=== PATIENT | male | born 1960 | race Caucasian/White ===

== ENCOUNTER → 2016-07-21 | Outpatient (CLI) | payer MEDICAID ==
[~2016-07-21] MED LIST: NO MEDICATIONS; OMEPRAZOLE40 M1 PO
[2016-07-21 10:10] LABS: HEMATOCRIT 44.8 % (38.0-50.0); HEMOGLOBIN 15.4 gm/dL (13.0-16.0); MEAN CELL VOLUME 101.6 FL (83-96); MEAN CORPUSCULAR HEMOGLOBIN 34.9 PG (28-34); MEAN CORPUSCULAR HGB CONC 34.4 g/dL (30-36); MEAN PLATELET VOLUME 8.9 FL (6.5-11.5); RED BLOOD COUNT 4.42 X10e (3.90-5.60); RED CELL DISTRIBUTION WIDTH 13.8 % (11.0-15.5); WHITE BLOOD COUNT 9.1 X10e3 (4.0-10.5)
[2016-07-21 11:13] LABS: ALBUMIN SERUM 4.1 g/dL (3.5-5.0); BILIRUBIN,TOTAL 0.3 mg/dL (0.2-2.0); BUN/CREATININE RATIO 16.66; CALCIUM SERUM 9.1 mg/dL (8.4-10.2); CREATININE SERUM 0.9 mg/dL (0.6-1.4); GLOM FILT RATE Estimated 95.8 mL/min (>60); POTASSIUM 3.5 mmol/L (3.5-5.1); PROTEIN TOTAL SERUM 7.5 g/dL (6.0-8.3)
== END | disposition home or self-care (01) ==
LOC: CLAB 09:46
PROVIDERS: Dermatology
DX: L70.0 Acne vulgaris (principal)
CPT/HCPCS: 36415; 80053; 80061; 85027

== ENCOUNTER 2016-08-09 01:44 | Emergency (ER) | payer MEDICAID ==
--- NOTE | ~2016-08-09 | EKG ---
PATIENT: SIMÓN RANDLE UNIT #: [id number] Ventricular Rate: 62 BPM Atrial Rate: 62 BPM P-R Interval: 158 ms QRS Duration: 78 ms Q-T Interval: 452 ms QTC Calculation(Bezet): 458 ms P [place]: 37 degrees Calculated R [place]: 15 degrees Calculated T [place]: 13 degrees Diagnosis Line: Normal sinus rhythm with sinus arrhythmia Diagnosis Line: Normal ECG Diagnosis Line: No previous ECGs available Diagnosis Line: Confirmed by ANN-MARIE HAZEL MD ([id number]) on Diagnosis Line: 08/09/2016 4:31:04 PM INTERPRETING MD: ILIR MOJICA
--- NOTE | ~2016-08-09 | CR72 ---
[facility] A Service of [facility] & [facility] RADIOLOGY TEXT RESULTS PATIENT: SIMÓN RANDLE LOCATION: [facility] : 60 UNIT #: [id number] AGE: [address]: Maddy Westfall SEX: M ORDER DR: [id number] [facility] [address] [place], [place] [address] [id number] E MR#: [id number] Acc #: [id number] NAME: SIMÓN RANDLE : 1960 SEX: M STUDY DATE/TIME: 08/09/2016 3:07 UNIT: [facility] ROOM: STUDY DESCRIPTION: CR Chest Single View Portable Attending Physician: Maddy Westfall Pa-C Ordering Physician: Ed Duong Randolph M.D. Primary Care Physician: No Primary Care Physician MEDICAL IMAGING REPORT This report is preliminary unless electronic signature is present EXAM Single view chest. INDICATION Midsternal chest pain. Syncope. FINDINGS Single, portable, AP view of the chest compared to 01/17/2016. Heart and mediastinal contour is normal. Lungs are clear. No pleural effusion. IMPRESSION No acute cardiopulmonary findings. Dictated by... Dneiz Quiles M.D. THIS IS AN ELECTRONICALLY VERIFIED REPORT Deniz Quiles M.D. at 08/09/2016 11:09 PM AMANDA/alanis TD: 08/09/2016 07:48 JOB #: [id number] MEDICAL IMAGING REPORT Page 1 of 1 COPY
[2016-08-09 02:48] LABS: BASOPHIL# 0.1 X10e3 (0-0.3); BASOPHIL% 0.8 % (0-2.5); EOSINOPHIL# 0.4 X10e3 (0-0.7); EOSINOPHIL% 5.3 % (0.0-7.0); HEMATOCRIT 43.5 % (38.0-50.0); HEMOGLOBIN 15.1 gm/dL (13.0-16.0); LYMPHOCYTE# 2.4 X10e3 (1.0-3.5); MEAN CELL VOLUME 101.8 FL (83-96); MEAN CORPUSCULAR HEMOGLOBIN 35.4 PG (28-34); MEAN CORPUSCULAR HGB CONC 34.8 g/dL (30-36); MEAN PLATELET VOLUME 8.8 FL (6.5-11.5); MONOCYTE# 0.6 X10e3 (0-1.0); MONOCYTE% 6.9 % (3.0-12.0); NEUTROPHIL# 4.7 X10e3 (1.5-7.1); PLATELET COUNT 206 X10e3 (140-420); RED BLOOD COUNT 4.28 X10e (3.90-5.60); RED CELL DISTRIBUTION WIDTH 13.5 % (11.0-15.5); WHITE BLOOD COUNT 8.2 X10e3 (4.0-10.5)
[2016-08-09 02:49] LABS: DIFF IND NO
[2016-08-09 02:55] LABS: POC - CKMB <1.0 ng/mL (0.0-7.9); POC - TROPONIN <0.05 ng/mL (<=0.05)
[2016-08-09 03:19] LABS: ALBUMIN SERUM 3.9 g/dL (3.5-5.0); BILIRUBIN, DIRECT 0.1 mg/dL (0.0-0.2); BILIRUBIN,INDIRECT 0.5 mg/dL (0.0-0.9); BILIRUBIN,TOTAL 0.6 mg/dL (0.2-2.0); CALCIUM SERUM 8.4 mg/dL (8.4-10.2); GLOM FILT RATE Estimated 84.4 mL/min (>60); POTASSIUM 3.4 mmol/L (3.5-5.1); PROTEIN TOTAL SERUM 7.4 g/dL (6.0-8.3)
[2016-08-09 04:58] LABS: POC - CKMB <1.0 ng/mL (0.0-7.9); POC - TROPONIN <0.05 ng/mL (<=0.05)
== END 2016-08-09 05:15 | disposition home or self-care (01) ==
LOC: CED 01:44
PROVIDERS: Physician Assistant Medical
DX: K29.70 Gastritis, unspecified, without bleeding (principal); Z90.49 Acquired absence of other specified parts of digestive tract; F17.210 Nicotine dependence, cigarettes, uncomplicated
CPT/HCPCS: 36415; 71010; 80048; 80076; 82553; 84484; 85025; 93005; 99284; C9113

== ENCOUNTER → 2016-08-14 | Outpatient (CLI) | payer MEDICAID ==
--- NOTE | ~2016-08-14 | CT2 ---
[facility] A Service of [facility] & [facility] RADIOLOGY TEXT RESULTS PATIENT: SIMÓN RANDLE LOCATION: [facility] : 60 UNIT #: [id number] AGE: [address]: Lemuel Mcdaniels MD SEX: M ORDER DR: [id number] [facility] [address] [place], [place] [address] [id number] O MR#: [id number] Acc #: [id number] NAME: SIMÓN RANDLE : 1960 SEX: M STUDY DATE/TIME: 08/14/2016 8:19 UNIT: [facility] ROOM: STUDY DESCRIPTION: CT Abd and Pelv W Cont Attending Physician: Lemuel Mcdaniels M.D. Referring Physician: Lemuel Mcdaniels M.D. Ordering Physician: Lemuel Mcdaniels M.D. Primary Care Physician: Maulik Hernandes M.D. MEDICAL IMAGING REPORT This report is preliminary unless electronic signature is present EXAM CT of the abdomen and pelvis with contrast. INDICATION Abdominal pain for 6 months. Patient also reports nausea and vomiting. Patient reportedly had a CT done 3 months ago at [facility] that showed 3 spots. This was supposed to be a followup study, however, [facility] has no record of this patient. TECHNIQUE Axial CT images were obtained from the dome of the diaphragm through symphysis pubis following the administration of oral and intravenous contrast material. This CT exam was performed with one or more of the following radiation dose reduction techniques: automatic exposure control, adjustment of mA and/or kV according to patient size, and iterative reconstruction. FINDINGS Images through the lung bases are clear. Stomach and proximal small bowel are within normal limits. Gallbladder is surgically absent. Adrenal glands appear normal, as is the pancreas. Liver does appear somewhat low in attenuation which may reflect some underlying hepatic steatosis, although this is difficult to fully assess on a postcontrast study. I do not see any focal hepatic lesions. Patient does have granulomatous calcifications within the spleen. Hyperdensities seen within the right kidney essentially appear to be parenchymal calcifications. The left kidney appears normal. Shotty retroperitoneal nodes are noted. There is a small fat-containing umbilical hernia. The appendix is visualized and is within normal limits. Prostate gland and urinary bladder appear normal. Small fat-containing left inguinal hernia is present. There is no evidence of mechanical bowel obstruction. No STS. [facility] A Service of [facility] RADIOLOGY TEXT RESULTS PATIENT: SIMÓN RANDLE LOCATION: [facility] : 60 UNIT #: [id number] AGE: [address]: Lemuel Mcdaniels MD SEX: M ORDER DR: free fluid or adenopathy is seen within the pelvis. Review of bony windows does not demonstrate any aggressive osseous abnormalities. There is a 9 mm structure which is seen immediately adjacent to the right hepatic lobe. I am uncertain of the clinical significance. A second one seen inferior to it, again adjacent to the right hepatic lobe, measuring about 8 mm in size. Again, it is indeterminate and potentially may reflect some enlarged lymph nodes. IMPRESSION 1. The patient reportedly has a history of an abnormal CT scan performed as part of the [facility] but there is no record of this patient at that facility. He reportedly had 3 spots seen in the abdomen. The patient does have 2 small nodules which are seen adjacent to the right hepatic lobe which range from about 8-9 mm in size. They are indeterminate and could reflect small lymph nodes. In the absence of any prior studies for comparison, I would suggest an additional CT followup in 6 months. 2. Liver does appear somewhat diminished in attenuation which could reflect some underlying steatosis. 3. Patient is status post cholecystectomy. 4. The appendix is visualized and is within normal limits. Dictated by... Nathaly Cox M.D. THIS IS AN ELECTRONICALLY VERIFIED REPORT Nathaly Cox M.D. at 08/14/2016 4:24 PM AFF/tmw TD: 08/14/2016 16:12 JOB #: [id number] MEDICAL IMAGING REPORT Page 1 of 1 COPY
[2016-08-14 17:06] LABS: POC - CREATININE 0.87 mg/dL (0.64-1.27); POC - GFR >60.0 mL/min (>60)
== END | disposition home or self-care (01) ==
LOC: CCAT 08-11 09:20
PROVIDERS: Surgery
DX: R10.9 Unspecified abdominal pain (principal); R11.2 Nausea with vomiting, unspecified; Z90.49 Acquired absence of other specified parts of digestive tract
CPT/HCPCS: 74177; 82565; Q9967